=== PATIENT | male | born 1995 | race Caucasian/White ===

== ENCOUNTER 2020-10-20 14:38 | Emergency (ER) | payer BC ==
[~2020-10-20] VITALS: Ht 180.3 cm; Wt 103.4 kg
[2020-10-20 14:51] VITALS: BP_SYST 142
--- NOTE | 2020-10-20 14:51 | NUR ---
Patient to ER FT1 to gown for evaluation. Side rails up.
--- NOTE | 2020-10-20 14:55 | NUR ---
Pt came to ER for sore throat states R tonsil swollen and painful with swallow. Pt resting in fast track no distress, md EMILY to eval
--- NOTE | 2020-10-20 15:10 | NUR ---
ER at bedside examining patient.
[2020-10-20 16:30] VITALS: BP_SYST 142
--- NOTE | 2020-10-20 16:30 | NUR ---
Patient given written and verbal discharge instructions and verbalizes understanding. ER MD discussed with patient the results and treatment provided. Patient in stable condition. ID arm band removed. No Rx of given. Patient educated on pain management and to follow up with PMD. Pain Scale 0/10. Opportunity for questions provided and answered. Medication side effect fact sheet provided.
== END 2020-10-20 16:30 | disposition home or self-care (01) ==
LOC: SED 14:38
DX: R13.10 Dysphagia, unspecified (principal)
CPT/HCPCS: 99281